=== PATIENT | male | born 1990 | race African-American/Black ===

== ENCOUNTER 2019-06-13 13:09 | Emergency (ER) | payer OTHER ==
[~2019-06-13] VITALS: Ht 188 cm; Wt 99.1 kg
--- NOTE | 2019-06-13 14:26 | REP ---
CHEST, TWO VIEWS: There is no evidence of acute infiltrate. No pleural effusion is seen. The heart is normal in size. The mediastinal silhouette is unremarkable. The visualized osseous structures are intact. There is no radiopaque foreign body visualized. IMPRESSION: No acute pulmonary disease. Electronically Signed by Art Roque MD 06/13/2019 04:40 P
[2019-06-13 15:12] VITALS: BP 134/72
== END 2019-06-13 15:13 | disposition home or self-care (01) ==
LOC: M ED 13:09
DX: R09.89 Other specified symptoms and signs involving the circulatory and respiratory systems (principal)